=== PATIENT | female | born 1970 | race Two or more races ===

== ENCOUNTER 2019-02-06 07:36 | Emergency (ER) | payer OTHER ==
[2019-02-06 07:48] VITALS: BP 123/80; PULSE 85; TEMP 98.1; BMI 26.8
[2019-02-06] MEDS ORDERED: PHENAZOPYRIDINE HCL 100 MG TABLET (FP) PO ONE (08:55)
[2019-02-06] MEDS ORDERED: PHENAZOPYRIDINE HCL 100 MG TABLET (FP) ONE ×2 (09:11→09:21)
--- NOTE | 2019-02-06 09:19 | PDOC ---
History of Present Illness - General History Source: Patient Exam Limitations: Clinical Condition - History of Present Illness Initial Comments: 02/06/19 08:41 Patient with no significant past medical history presented with complaint of 3 days history of burning with urination, urinary frequency and suprapubic discomfort. Patient reported having similar episode 2 weeks ago in [facility] and was treated on 3-day course of Cipro antibiotics which symptoms improved but came back again 3 days ago. Denies nausea, vomiting, fever, chills, back pains. Denies any other symptoms. Patient did not take anything for symptoms Is this a multiple visit Asthma Patient?: No Timing/Duration: other (3 days) <Shade Bolton - Last Filed: 02/06/19 09:43> <Marcus Gómez - Last Filed: 02/06/19 13:56> - General Chief Complaint: Urinary Problem Stated Complaint: R/O UTI Time Seen by Provider: 02/06/19 08:18 Past History - Past Medical History COPD: No HTN: Yes - Psycho Social/Smoking Cessation Hx Smoking History: Never smoked Hx Alcohol Use: No Drug/Substance Use Hx: No <Shade Bolton - Last Filed: 02/06/19 09:43> <Marcus Gómez - Last Filed: 02/06/19 13:56> - Past Medical History Allergies/Adverse Reactions: Allergies Allergy/AdvReac Type Severity Reaction Status Date / Time No Known Allergies Allergy Verified 02/06/19 09:27 Home Medications: Ambulatory Orders Cephalexin Monohydrate [Keflex -] 500 mg PO BID 7 Days #14 capsule 02/06/19 Lisinopril 10 mg PO HS 02/06/19 Phenazopyridine HCl [Pyridium -] 100 mg PO TID 2 Days #6 tablet 02/06/19 Review of Systems - Review of Systems Able to Perform ROS?: Yes Is the patient limited [place]ian proficient: No Constitutional: No: Chills, Fever, Malaise HEENTM: No: Symptoms Reported, Recent change in vision Respiratory: No: Symptoms reported, See HPI, Cough, Orthopnea, Shortness of Breath, SOB with Exertion, SOB at Rest, Stridor, Wheezing, Productive cough, Hemoptysis, Other Cardiac (ROS): No: Symptoms Reported, See HPI, Chest Pain, Edema, Irregular Heart Rate, Lightheadedness, Palpitations, Syncope, Chest Tightness, Other ABD/GI: Yes: Symptoms Reported, See HPI, Abdominal cramping (suprapubic discomfort). No: Nausea, Vomiting : Yes: Symptoms Reported, See HPI, Burning, Dysuria, Frequency, Hematuria, Urgency. No: Discharge, Flank Pain, Incontinence Musculoskeletal: No: Symptoms Reported, Back Pain All Other Systems: Reviewed and Negative <Shade Bolton - Last Filed: 02/06/19 09:43> *Physical Exam - Vital Signs Last Vital Signs Temp Pulse Resp BP Pulse Ox 98.1 F 85 14 123/80 96 02/06/19 07:44 02/06/19 07:44 02/06/19 07:44 02/06/19 07:44 02/06/19 07:44 - Physical Exam General Appearance: Yes: Nourished, Appropriately Dressed. No: Apparent Distress HEENT: positive: Normal ENT Inspection Neck: positive: Supple Respiratory/Chest: positive: Lungs Clear, Normal Breath Sounds. negative: Respiratory Distress, Accessory Muscle Use Cardiovascular: positive: Regular Rhythm, Regular Rate Gastrointestinal/Abdominal: positive: Normal Bowel Sounds, Tender (mild suprapubic discomfort), Flat, Soft. negative: Organomegaly, Distended, Guarding , Rebound, Hernia Musculoskeletal: positive: Normal Inspection. negative: CVA Tenderness Extremity: positive: Normal Inspection Integumentary: positive: Normal Color Neurologic: positive: Fully Oriented, Alert, Normal Mood/Affect, Normal Response <Shade Bolton - Last Filed: 02/06/19 09:43> - Vital Signs Last Vital Signs Temp Pulse Resp BP Pulse Ox 98.1 F 85 14 123/80 96 02/06/19 07:44 02/06/19 07:44 02/06/19 07:44 02/06/19 07:44 02/06/19 07:44 <Marcus Gómez - Last Filed: 02/06/19 13:56> ED Treatment Course - ADDITIONAL ORDERS Additional order review: Laboratory Results 02/06/19 02/06/19 08:50 08:50 Urine Color Yellow Urine Appearance Turbid Urine pH 6.0 Ur Specific [place] 1.018 Urine Protein 2+ H Urine Glucose (UA) Negative Urine Ketones Negative Urine Blood 2+ H Urine Nitrite Negative Urine Bilirubin Negative Urine Urobilinogen 0.2 Ur Leukocyte Esterase 3+ H Urine WBC (Auto) 952 Urine RBC (Auto) 20-30 Urine Casts (Auto) 5 U Epithel Cells (Auto) 0.9 Urine Bacteria (Auto) 3754.2 Urine Yeast (Auto) Negative Urine HCG, Qual Negative - Medications Given in the ED: ED Medications Discontinued Medications Generic Name Dose Route Start Last Admin Trade Name Thuy PRN Reason Stop Dose Admin Phenazopyridine HCl 200 mg 02/06/19 08:55 02/06/19 09:15 Pyridium - PO 02/06/19 08:56 200 mg ONCE ONE Administration <Marcus Gómez - Last Filed: 02/06/19 13:56> Medical Decision Making - Medical Decision Making 02/06/19 09:44 Patient with no significant past medical history presented with complaint of 3- day history of urinary symptoms of dysuria, burning with urination and suprapubic discomfort without fevers. Patient with prior treatment for UTI on Cipro antibiotics 2 weeks ago but started having symptoms again. UA shows leukocytosis with WBCs. Urine hCG negative. Patient stable for outpatient management on Keflex antibiotics and Pyridium for discomfort pending urine culture results. Patient advised to increase fluid intake and follow-up with urologist if symptoms persist for more than 4 days. Patient stable for discharge <Shade Bolton - Last Filed: 02/06/19 09:43> - Medical Decision Making 02/06/19 13:56 I reviewed the case of the mid-level practitioner and was available for consultation while in the emergency department <Marcus Gómez - Last Filed: 02/06/19 13:56> Discharge - Discharge Information Problems reviewed: Yes <Shade Bolton - Last Filed: 02/06/19 09:43> <Marcus Gómez - Last Filed: 02/06/19 13:56> - Discharge Information Clinical Impression/Diagnosis: Dysuria UTI (urinary tract infection) Qualifiers: Urinary tract infection type: acute cystitis Hematuria presence: with hematuria Qualified Code(s): N30.01 - Acute cystitis with hematuria Condition: Stable Disposition: HOME - Additional Discharge Information Prescriptions: Cephalexin Monohydrate [Keflex -] 500 mg PO BID 7 Days #14 capsule Phenazopyridine HCl [Pyridium -] 100 mg PO TID 2 Days #6 tablet - Follow up/Referral Referrals: Bertrand Hathaway MD [Staff Physician] - - Patient Discharge Instructions Patient Printed Discharge Instructions: DI for Urinary Tract Infection (UTI) Additional Instructions: Your are being treated for urinary tract infection. Take medications as prescribed. Increase fluid intake. Follow-up with referred urologist if no improvement in 3 days
[2019-02-06 09:25] LABS: EPI CELLS 0.9 /HPF (0-5/HPF); HYALINE CASTS 5 /lpf (0-8); URINE APPEARANCE TURBID; URINE BACTERIA 3754.2 /hpf (NEGATIVE); URINE BILIRUBIN NEGATIVE (NEGATIVE); URINE COLOR YELLOW; URINE GLUCOSE (UA) NEGATIVE (NEGATIVE); URINE KETONE NEGATIVE (NEGATIVE); URINE LEUK ESTERASE 3+ (NEGATIVE); URINE NITRITE NEGATIVE (NEGATIVE); URINE PROTEIN 2+ (NEGATIVE); URINE UROBILINOGEN 0.2 mg/dL (0.2-1.0); URINE WBC 952 /hpf (0-5)
[2019-02-06 11:47] LABS: URINE RBC 20-30 /hpf (0-4); YEAST NEGATIVE (NEGATIVE)
== END 2019-02-06 09:40 | disposition home or self-care (01) ==
LOC: JER 07:36
DX: N30.01 Acute cystitis with hematuria (principal); I10 Essential (primary) hypertension
CPT/HCPCS: 81003; 84703; 87086; 87186; 99283-25